=== PATIENT | female | born 1965 | race African-American/Black ===

== ENCOUNTER 2024-06-04 13:11 | Inpatient (IN) | payer SELFPAY ==
[~2024-06-04] VITALS: Ht 162.6 cm; Wt 134.3 kg
[~2024-06-04 13:11] MED LIST: DILT120C61 PO; HYDR-1348 PO; OMEP20CA14 PO
[2024-06-04] MEDS: MORPHINE SULFATE 4 MG/ML INJ (FOR IV/IM USE) IV STA (13:59)
[2024-06-04] MEDS: ACETAMINOPHEN 325MG TABLET PO ONE (14:07)
[2024-06-04] MEDS: NITROGLYCERIN 0.4MG TABLET SL SL PRN (14:08)
[2024-06-04 14:31] LABS: BASOPHILS % 0.3 % (0.0-2.0); EOSINOPHILS % 0.7 % (0.0-5.0); HEMATOCRIT. 32.7 % (36.0-48.0); HEMOGLOBIN. 11.2 g/dL (12.0-16.0); LYMPHOCYTES % 21.1 % (20.0-50.0); MEAN CORPUSCULAR HEMOGLOBIN 30.3 pg (28.0-32.0); MEAN CORPUSCULAR HGB CONC 34.4 g/dL (31.0-37.0); MEAN CORPUSCULAR VOLUME 88.2 fL (81.0-99.0); MEAN PLATELET VOLUME 6.9 fl (7.4-10.4); MONOCYTES % 5.6 % (2.0-8.0); NEUTROPHILS % 72.3 % (40.0-76.0); PLATELET 373 x1000/uL (130-400); RED BLOOD CELL COUNT 3.71 mill/uL (4.2-5.4); RED CELL DISTRIBUTION WIDTH 14.4 % (11.6-14.6); WHITE BLOOD COUNT 6.5 x1000/uL (4.5-11.0)
[2024-06-04 14:35] LABS: CHLORIDE 107 mEq/L (98-107); POTASSIUM 3.5 mEq/L (3.5-5.1); SODIUM 139 mEq/L (136-145)
[2024-06-04 14:36] LABS: CALCIUM 9.1 mg/dL (8.7-10.4); CARBON DIOXIDE 27 mEq/L (21-32)
[2024-06-04 14:41] LABS: CREATININE 0.7 mg/dL (0.6-1.0); GLUCOSE 106 mg/dL (70-105); UREA NITROGEN BLOOD 9 mg/dL (9-23)
[2024-06-04 14:42] LABS: CLARITY URINE CLEAR (CLEAR); COLOR URINE DARK YELLOW (YELLOW); GLUCOSE URINE NEGATIVE (NEGATIVE); KETONES URINE NEGATIVE (NEGATIVE); LEUKOCYTE ESTERASE URINE 1+ (NEGATIVE); NITRITE URINE NEGATIVE (NEGATIVE); OCCULT BLOOD URINE NEGATIVE (NEGATIVE); PROTEIN URINE NEGATIVE (NEGATIVE); SPECIFIC GRAVITY URINE 1.021 (1.005-1.030); UROBILINOGEN URINE 0.2 E.U./dL (0.2-1.0)
[2024-06-04 15:01] LABS: PROTHROMBIN TIME 10.9 sec (9.6-11.0)
[2024-06-04 15:05] LABS: BACTERIA URINE 1+; RBC URINE 0-2 /hpf (0-2); SQUAMOUS EPITHELIAL CELL URINE 1+ /lpf (RARE/1+); YEAST URINE NONE SEEN
[2024-06-04 16:27] LABS: TROPONIN I HIGH SENSITIVITY 5 ng/L (3.0-34)
[2024-06-04] MEDS: NITROFURANTOIN 100MG M/M CAPSULE PO NR (17:40)
[2024-06-04] MEDS ORDERED: DOCUSATE SODIUM 100MG CAPSULE PO PRN (20:30)
[2024-06-04] MEDS ORDERED: KETOROLAC 15MG/ML VIAL IV PRN (20:30)
[2024-06-04] MEDS ORDERED: IPRATROPIUM/ALBUTEROL 0.5-3(2.5)MG/3ML NEB NEB PRN (20:30)
[2024-06-04] MEDS ORDERED: GUAIFENESIN 200MG/10ML SUGAR FREE UDC PO PRN (20:30)
[2024-06-04] MEDS ORDERED: ONDANSETRON HCL 4MG/2ML INJ IV PRN (20:30)
[2024-06-04] MEDS ORDERED: MAGNESIUM/ALUMINUM HYDROXIDE/SIMETHICONE 30ML UDC PO PRN (20:30)
[2024-06-04] MEDS ORDERED: ZOLPIDEM TARTRATE 5MG TABLET PO PRN (21:00)
[2024-06-04 21:23] LABS: *AMPHETAMINES SCREEN URINE NEGATIVE (NEGATIVE); *BARBITURATES SCREEN URINE NEGATIVE (NEGATIVE); *BENZODIAZEPINES SCREEN URINE NEGATIVE (NEGATIVE); *COCAINE SCREEN URINE NEGATIVE (NEGATIVE); CANNABINOID URINE SCREEN NEGATIVE (NEGATIVE); ECSTASY MDMA SCREEN URINE NEGATIVE (NEGATIVE); METHADONE URINE SCREEN NEGATIVE (NEGATIVE); OPIATES URINE SCREEN NEGATIVE (NEGATIVE); PHENCYCLIDINE URINE SCREEN NEGATIVE (NEGATIVE)
[2024-06-04 21:38] LABS: VITAMIN B12 SERUM 546 pg/mL (211-911)
[2024-06-05] MEDS: IOHEXOL-350 100 ML BOTTLE ONE (00:06)
[2024-06-05] MEDS: NITROGLYCERIN OINT 1GM/INCH UDPKT TD SCH (00:11)
[2024-06-05] MEDS: ENOXAPARIN 40MG/0.4ML SYR SUBCUT SCH (00:18)
[2024-06-05] MEDS: FAMOTIDINE 20MG TABLET PO SCH (00:18)
[2024-06-05 00:20] LABS: CREATINE KINASE MB FRACTION < 0.5 ng/mL (0.5-3.6)
[2024-06-05] MEDS: ACETAMINOPHEN 325MG TABLET PO PRN (00:20)
[2024-06-05 00:22] LABS: CREATINE KINASE 27 IU/L (34-145)
[2024-06-05 00:25] LABS: TROPONIN I HIGH SENSITIVITY 5 ng/L (3.0-34)
[2024-06-05 00:28] LABS: IRON 52 ug/dL (50-170)
[2024-06-05 00:29] LABS: LDL CHOLESTEROL 108 mg/dL (5-100); TRIGLYCERIDE 256 mg/dL (0-150)
[2024-06-05 00:30] LABS: CHOLESTEROL 203 mg/dL (<200); HDL CHOLESTEROL 48 mg/dL (>65)
[2024-06-05 00:31] LABS: TOTAL IRON BINDING CAPACITY 286 ug/dl (250-425)
[2024-06-05 00:33] LABS: T4 FREE 1.51 ng/dL (0.89-1.76); THYROID STIMULATING HORMONE 1.26 uIU/mL (0.55-4.78)
[2024-06-05 00:44] LABS: ETHANOL BLOOD < 10 mg/dL (<10)
[2024-06-05] MEDS: NITROGLYCERIN 0.4MG TABLET SL SL PRN (04:06)
[2024-06-05 08:27] VITALS: BP 147/84; PULSE 87; RESP 20; TEMP 36.3918; O2SAT 98
[2024-06-05 10:46] LABS: BASOPHILS % 0.5 % (0.0-2.0); HEMATOCRIT. 32.6 % (36.0-48.0); HEMOGLOBIN. 10.6 g/dL (12.0-16.0); LYMPHOCYTES % 15.7 % (20.0-50.0); MEAN CORPUSCULAR HEMOGLOBIN 29.1 pg (28.0-32.0); MEAN CORPUSCULAR HGB CONC 32.6 g/dL (31.0-37.0); MEAN CORPUSCULAR VOLUME 89.4 fL (81.0-99.0); MEAN PLATELET VOLUME 7.1 fl (7.4-10.4); NEUTROPHILS % 78.8 % (40.0-76.0); PLATELET 357 x1000/uL (130-400); RED BLOOD CELL COUNT 3.64 mill/uL (4.2-5.4); WHITE BLOOD COUNT 7.7 x1000/uL (4.5-11.0)
[2024-06-05] MEDS: ASPIRIN 81MG EC TABLET PO SCH (10:54)
[2024-06-05 11:06] LABS: CARBON DIOXIDE 25 mEq/L (21-32); CHLORIDE 105 mEq/L (98-107); POTASSIUM 3.3 mEq/L (3.5-5.1); SODIUM 139 mEq/L (136-145)
[2024-06-05 11:11] LABS: CREATININE 0.6 mg/dL (0.6-1.0); GLUCOSE 125 mg/dL (70-105)
[2024-06-05 11:12] LABS: CREATINE KINASE MB FRACTION < 0.5 ng/mL (0.5-3.6); TROPONIN I HIGH SENSITIVITY 5 ng/L (3.0-34); UREA NITROGEN BLOOD 9 mg/dL (9-23)
[2024-06-05 11:13] LABS: ALANINE AMINOTRANSFERASE 105 IU/L (10-49); ALBUMIN 4.1 g/dL (3.2-4.8); ASPARTATE AMINOTRANSFERASE 39 IU/L (<34)
[2024-06-05 11:14] LABS: BILIRUBIN TOTAL 0.6 mg/dL (0.1-1.0); CREATINE KINASE 22 IU/L (34-145); PHOSPHORUS 2.8 mg/dL (2.5-4.9); PROTEIN TOTAL 6.9 g/dL (6.0-8.3)
[2024-06-05 11:59] VITALS: BP 147/84; PULSE 87; RESP 20; TEMP 36.418
[2024-06-05 12:00] VITALS: BP 139/76; PULSE 88; RESP 20; TEMP 36.6696; O2SAT 99
[2024-06-05] MEDS ORDERED: ASPI-1497 PO (15:54)
[2024-06-05] MEDS ORDERED: CARV12.545 PO (15:54)
[2024-06-05] MEDS ORDERED: NITR0.4T49 SL (15:54)
[2024-06-05] MEDS ORDERED: LOSA25TA26 PO (15:54)
[2024-06-05] MEDS ORDERED: AMLO10TA80 PO (15:54)
[2024-06-05] MEDS ORDERED: ATOR40TA70 PO (15:54)
[2024-06-05] MEDS: POTASSIUM CHLORIDE 20MEQ TABLET SR PO NR (15:55)
[2024-06-05 16:00] VITALS: BP 124/73; PULSE 84; RESP 20; TEMP 36.50292; O2SAT 98
[2024-06-05 20:00] VITALS: BP 108/54; PULSE 94; RESP 19; TEMP 36.22512; O2SAT 98
[2024-06-05] MEDS: ATORVASTATIN CALCIUM 10MG TABLET PO SCH (21:09)
[2024-06-06] VITALS: BP 104/65; PULSE 99; RESP 18; TEMP 35.8362; O2SAT 97
[2024-06-06 10:37] VITALS: BP 128/73; PULSE 97; TEMP 97.6; O2SAT 96
[2024-06-06 11:29] VITALS: BP 128/73; PULSE 97; RESP 20; TEMP 36.44736; O2SAT 96
[2024-06-06 12:00] VITALS: BP 145/76; PULSE 91; RESP 20; TEMP 36.28068; O2SAT 97
[2024-06-06] MEDS: ACETAMINOPHEN 325MG TABLET PO PRN (14:13)
[2024-06-06 16:00] VITALS: BP 124/74; PULSE 97; RESP 20; TEMP 36.44736; O2SAT 96
[2024-06-06] MEDS: CLONIDINE 0.1MG TABLET PO PRN (16:13)
[2024-06-06 20:00] VITALS: BP 111/68; PULSE 92; RESP 17; TEMP 36.44736; O2SAT 96
[2024-06-06] MEDS: CARVEDILOL 12.5MG TABLET PO NR (21:05)
[2024-06-07] VITALS: BP 114/62; PULSE 90; RESP 18; TEMP 36.44736; O2SAT 98
[2024-06-07 04:00] VITALS: BP 147/76; PULSE 83; RESP 16; RESP 17; TEMP 36.3918; O2SAT 100
[2024-06-07 08:00] VITALS: BP 94/67; PULSE 91; RESP 20; TEMP 36.44736; O2SAT 20
[2024-06-07] MEDS: CARVEDILOL 12.5MG TABLET PO SCH (08:31)
[2024-06-07 12:00] VITALS: BP 127/73; PULSE 89; RESP 20; TEMP 36.6696; TEMP 36.66960; O2SAT 96
== END 2024-06-07 16:27 | disposition home or self-care (01) | DRG 201 ==
LOC: ER 13:11 → 5WST 18:43 → 8WST 06-05 08:18
PROVIDERS: ADMIT Internal Medicine; ATTEND Internal Medicine
DX: I47.10 Supraventricular tachycardia, unspecified (principal); I11.0 Hypertensive heart disease with heart failure; I50.9 Heart failure, unspecified; Z68.43 Body mass index [BMI] 50.0-59.9, adult; R07.89 Other chest pain; I48.91 Unspecified atrial fibrillation; Z20.822 Contact with and (suspected) exposure to COVID-19; E66.01 Morbid (severe) obesity due to excess calories; E78.00 Pure hypercholesterolemia, unspecified; Z86.73 Personal history of transient ischemic attack (TIA), and cerebral infarction without residual deficits; Z79.899 Other long term (current) drug therapy
CPT/HCPCS: 36415; 71045; 71275; 74174; 80048; 80053; 80061; 80305; 80320; 81003; 82550; 82553; 82607; 82746; 83036; 83540; 83550; 83735; 83880; 84100; 84439; 84443; 84484; 85025; 85379; 87426; 93005; 93306; 93970; 99285; J1650; Q9967; G0480